=== PATIENT | male | born 1955 | race Caucasian/White ===

== ENCOUNTER 2024-12-23 06:22 | Day surgery (SDC) | payer MEDICARE, OTHER, SELFPAY | END 2024-12-23 09:10 | disposition home or self-care (01) | LOC: GI 06:22 | PROVIDERS: ATTENDING PHYSICIAN Student in an Organized Health Care Education/Training Program | DX: Z12.11 Encounter for screening for malignant neoplasm of colon (principal); K64.5 Perianal venous thrombosis; K57.30 Diverticulosis of large intestine without perforation or abscess without bleeding; K64.1 Second degree hemorrhoids; D12.0 Benign neoplasm of cecum; D12.8 Benign neoplasm of rectum; K63.5 Polyp of colon; Z86.0101 Personal history of adenomatous and serrated colon polyps | CPT/HCPCS: 45385; 45380; 88305 ==